=== PATIENT | female | born 1980 | race African-American/Black ===

== ENCOUNTER 2020-12-23 21:58 | Emergency (ER) | payer OTHER ==
[~2020-12-23] VITALS: Ht 180.3 cm; Wt 111.1 kg
[2020-12-23 22:14] VITALS: BP 114/68
--- NOTE | 2020-12-23 22:18 | NUR ---
to lobby a/w bed ambulatory
--- NOTE | 2020-12-23 22:59 | NUR ---
seen and examined by RENATA
--- NOTE | 2020-12-23 23:00 | NUR ---
39 YO F BIB SELF WITH C/C OF VAGINAL BLEEDING AND CLOTTING X2DAYS. PT DENIES PAIN. DENIES POSSIBILITY OF BEING . PT DENIES VAGINAL ODOR, ITCH, NOR OTHER DISCHARGE. DENIES HX, RX, AND ALLERG LM: Dec
--- NOTE | 2020-12-23 23:22 | NUR ---
ULTRASOUND AT BEDSIDE.
[2020-12-23 23:35] LABS: BASOPHILS # (AUTO) 0.1 K/uL (0.00-0.22); BASOPHILS % (AUTO) 0.9 % (0.0-2.0); EOSINOPHILS # (AUTO) 0.2 K/uL (0-0.4); EOSINOPHILS % (AUTO) 2.2 % (0.0-4.0); HEMATOCRIT 32.6 % (36-48); HEMOGLOBIN 10.4 g/dL (12.0-16.0); LYMPHOCYTES # (AUTO) 1.8 K/uL (2.5-16.5); LYMPHOCYTES % (AUTO) 23.1 % (20.5-51.1); MEAN CORPUSCULAR HEMOGLOBIN 25 pg (27-31); MEAN CORPUSCULAR HGB CONC 32 g/dL (33-37); MEAN CORPUSCULAR VOLUME 77.2 fL (80-94); MONOCYTES # (AUTO) 0.5 K/uL (0.8-1.0); MONOCYTES % (AUTO) 6.1 % (1.7-9.3); NEUTROPHILS # (AUTO) 5.4 K/uL (1.8-7.7); NEUTROPHILS % (AUTO) 67.7 % (42.2-75.2); PLATELET COUNT (AUTO) 333 K/uL (140-450); RED BLOOD CELL COUNT(AUTO) 4.23 MIL/uL (4.20-5.40); RED CELL DISTRIBUTION WIDTH 17.7 % (11.6-13.7); WHITE BLOOD COUNT (AUTO) 7.9 K/uL (4.8-10.8)
[2020-12-23 23:56] LABS: APPEARANCE,URINE CLEAR (CLEAR); BILIRUBIN,URINE NEGATIVE (NEGATIVE); BLOOD, URINE 3+ (NEGATIVE); COLOR,URINE YELLOW (YELLOW); LEUKOCYTE ESTERASE ,URINE NEGATIVE (NEGATIVE); NITRITE, URINE NEGATIVE (NEGATIVE); UGLUCOSE NEGATIVE (NEGATIVE)
[2020-12-23 23:57] LABS: ALBUMIN 3.3 g/dL (3.4-5.0); ANION GAP 12.8 (8-16); CARBON DIOXIDE 24.9 mmol/L (21-32); CREATININE 0.8 mg/dL (0.6-1.3); POTASSIUM 3.7 mmol/L (3.5-5.1); TOTAL BILIRUBIN 0.1 mg/dL (0.0-1.0)
[2020-12-24 00:03] LABS: PROTHROMBIN TIME 9.9 secs (10.8-13.4)
[2020-12-24 00:18] LABS: CALCIUM OXALATE CRYSTALS,UR 0-2 /HPF (None Seen)
[2020-12-24] MEDS ORDERED: MEDR10TA PO (00:39)
[2020-12-24 00:43] VITALS: BP 114/68
--- NOTE | 2020-12-24 00:43 | NUR ---
Patient discharged with v/s stable. Written and verbal after care instructions given and explained. Patient alert, oriented and verbalized understanding of instructions. Ambulatory with steady gait. All questions addressed prior to discharge. ID band removed. Patient advised to follow up with PMD. Rx of PROVERA given. Patient educated on indication of medication including possible reaction and side effects. Opportunity to ask questions provided and answered.DC BY RENATA ANDUJAR.
[2020-12-25] MEDS ORDERED: MEDR10TA PO (20:53)
== END 2020-12-24 00:43 | disposition home or self-care (01) ==
LOC: MED 21:58
DX: D25.9 Leiomyoma of uterus, unspecified (principal); F17.200 Nicotine dependence, unspecified, uncomplicated; F15.90 Other stimulant use, unspecified, uncomplicated; Z79.899 Other long term (current) drug therapy; Z98.890 Other specified postprocedural states
CPT/HCPCS: 36415; 76856; 80053; 81001; 81025; 85025; 85610; 85730; 87086; 99284; Q0092